=== PATIENT | female | born 1985 | race Caucasian/White ===

== ENCOUNTER 2022-09-10 19:12 | Emergency (ER) | payer OTHER ==
[~2022-09-10] VITALS: Ht 170.2 cm; Wt 77.3 kg
[2022-09-10] MEDS ORDERED: GLIP10TA10 PO (19:36)
[2022-09-10] MEDS ORDERED: METF-1211 PO (19:36)
[2022-09-10] MEDS ORDERED: LEVO100 PO (19:36)
[2022-09-10 20:00] VITALS: BP 101/62
[2022-09-10] MEDS ORDERED: CORTSOL AS (20:12)
[2022-09-10 20:56] LABS: GLUCOSE,POINT OF CARE 198 MG/DL (70-110)
== END 2022-09-10 20:25 | disposition home or self-care (01) ==
LOC: EMS 19:12
DX: H60.512 Acute actinic otitis externa, left ear (principal); E11.9 Type 2 diabetes mellitus without complications; E05.90 Thyrotoxicosis, unspecified without thyrotoxic crisis or storm
CPT/HCPCS: 82962; 99283